=== PATIENT | female | born 1935 | race Caucasian/White ===

== ENCOUNTER → 2024-01-16 13:54 | Outpatient (REF) | payer OTHER, SELFPAY | LOC: RAD 13:54 | PROVIDERS: ATTENDING PHYSICIAN Family Medicine | DX: R05.3 Chronic cough (principal) | CPT/HCPCS: 70220; 71046 ==

== ENCOUNTER 2024-02-27 12:23 | Emergency (ER) | payer OTHER, SELFPAY ==
[2024-02-27 12:24] VITALS: BP 157/59
[2024-02-27 12:54] VITALS: BP 125/54
--- NOTE | 2024-02-27 13:39 | ED.GENMED ---
History of Present Illness
General
Chief Complaint: Headache
Source: patient
Exam Limitations: none
Time Seen by Provider: 02/27/24 12:53
Nursing documentation reviewed up to this point in time: agreed with
Travel History
Have you had any contact with someone who has COVID-19?: No
Do you have any symptoms of coronavirus? Fever > 100 degrees, chills, cough, shortness of breath, sore throat, loss of taste or smell, muscle aches, or headache?: No
History of Present Illness
History of Present Illness:
88-year-old female with history of HLD, IBS, impaired vision, cardiac cath with stent 2011, colon resection 2014 presents stating for past 3 days, all day long she gets sharp, shooting electric like pain originating posterior scalp behind the mid
ear (points to just above and medial to the mastoid process). The episodes last from a few seconds to up to a minute. It does not wake her from sleep.
No recent trauma. No goldberg in vision. Denies ear ache or neck pain but left side of neck is starting to get 'sore.'
She has been extremely stressed in past 2 weeks due to family issues
Past History
Past History
ED Past Surgical History: Bowel resection, Cardiac, Gynecological and Other (hernia repair)
Social History
Tobacco: Non-smoker
Alcohol: None
Personal:
Living: with family
Review of Systems
Review of Systems
Allergies reviewed?: Yes
All Other Systems: ROS reviewed and negative except as documented in HPI and ROS
Constitutional: Denies fever
EENT: Denies sore throat
Respiratory: Denies cough or trouble breathing
Cardiac: Denies chest pain
ABD/GI: Denies abdominal pain or nausea
Musculoskeletal: Reports other (scalp pain behind left ear)
Skin: Reports no symptoms
Neurological: Denies dizzy, headache, weakness or numbness
Phy Exam
Physical Exam
Physical Exam:
GENERAL: No acute distress. A&Ox3.
CONSTITUTIONAL: Afebrile.
EYES: PERRL, conjunctivae normal
Neck: Supple, full ROM
ENMT: moist mucus membranes, Pharynx nl, TMs normal
RESPIRATORY: Regular respirations, nonlabored, lungs clear.
CARDIOVASCULAR: Regular rate and rhythm, no murmurs, no rubs.
GI: Soft, nontender, normal BS
MUSCULOSKELETAL: Neck is nontender to palpation. Full range of motion. Moves with ease. Well perfused.
SKIN: Warm, dry, pink
PSYCH: Normal mood and affect. Well kept, interactive and appropriate
NEUROLOGIC: Awake, alert and oriented. No focal neurological deficits. [id number] intact, ambulates well with steady gait.
Course
Orders/Labs/Results
Orders:
Orders
02/27/24 14:45
Dexamethasone [Decadron] 10 mg PO NOW STA
Vital Signs
Initial and Last Documented VS:
Initial Vital Signs
Temp Pulse Resp BP Pulse Ox
97.8 F 79 16 157/59 96
02/27/24 12:24 02/27/24 12:24 02/27/24 12:24 02/27/24 12:24 02/27/24 12:24
Last Documented Vital Signs
Temp Pulse Resp BP Pulse Ox
97.8 F 67 18 125/54 95
02/27/24 12:24 02/27/24 12:54 02/27/24 12:54 02/27/24 12:54 02/27/24 12:54
Procedures
Other
Indication for procedure:: Occipital neuralgia
Procedure completed by: I Day DOUGH MOLDER
Additional Procedure:
2:15 p.m.
After identifying trigger point left posterior scalp over, area cleansed with alcohol wipe, injected 5 ml of Bupivicaine.
After 35 minutes still with occasional not as frequent or severe episodes, another 5 ml Bupivicaine injected 1 cm above the initial injection site.
Pt tolerated procedure well.
Decadron 10 mg given
Prednisone 40 mg daily x 3 days rx sent to her pharmacy.
3:25 p.m.
Has not had any pain since second injection
MDM/Problems Addressed
Differential Diagnosis Includes:
occipital neuralgia, cervicogenic headache, musculoskeletal referred pain
MDM/Problems Addressed:
88-year-old female with history of HLD, IBS, impaired vision, cardiac cath with stent 2011, colon resection 2014 presents stating for past 3 days, all day long she gets sharp, shooting electric like pain originating posterior scalp behind the mid
ear (points to just above and medial to the mastoid process). The episodes last from a few seconds to up to a minute. It does not wake her from sleep.
No recent trauma. No goldberg in vision. Denies ear ache or neck pain but left side of neck is starting to get 'sore.'
She has been extremely stressed in past 2 weeks due to family issues
Hx and exam consistent with left side occipital neuralgia vs referred cervical muscular pain due to stressGON
Tender over Greater occipital nerve + Tinel's sign to this area.
No cervical motion restriction. Mild tenderness left cervical muscles.
Rest of neuro exam is normal.
No trauma, no neuro deficits, clearly scalp pain, no imaging indicated
3:20 PM
See procedure note.
After second injection, at base of ELSY, no further pain.
Pt ambulated out with normal gait.
Plan: Short burst of steroids, follow-up with PCP if not improved in 5 to 7 days. Stress reduction discussed
*Critical Care Note
Total Time (30-74mins, 75-104mins- exclusive of procedures): Not Applicable
ED Attending Note
-
Portions of this chart may have been created with voice recognition software.� Occasional wrong word or��sound alike� substitutions may have occurred due to the inherent limitations of voice recognition software.
Discharge Plan
Departure
Patient Disposition: Home (Routine Discharge)
Date of Disposition: 02/27/24
Time of Disposition: 15:20
Patient with high blood pressure during this ER visit?: No
Condition: Good
Discharge Problem:
Occipital neuralgia of left side, Stress
Instructions: Stress, Headache, Adult ED
Prescriptions:
New
prednisone 20 mg tablet
40 mg PO DAILY Qty: 6 0RF
No Action
cholecalciferol (vitamin D3) [Vitamin D3] 1,000 UNIT tablet
1 tablets PO DAILY
ascorbic acid (vitamin C) [Vitamin C] 1,000 MG tablet
1,000 mg PO DAILY
famotidine 40 MG tablet
40 mg PO MOWEFR
cyanocobalamin (vitamin B-12) 1,000 MCG tablet
1,000 mcg DAILY
aspirin [Adult Aspirin Regimen] 81 MG tablet,delayed release (DR/EC)
81 mg PO DAILY
calcium carbonate 500 MG tablet
1,000 mg PO DAILY
metoprolol succinate [Toprol XL] 25 MG tablet extended release 24 hr
25 mg PO DAILY
biotin 5,000 MCG tablet,disintegrating
5,000 mcg PO DAILY
Fiberwell 5 G
10 grams HS
Prevagen
1 tab PO DAILY
clopidogrel 75 MG tablet
75 mg PO DAILY Qty: 90 3RF
rosuvastatin 10 MG tablet
10 mg PO QPM Qty: 90 3RF
Rx Instructions:
Please note dose increase
losartan 25 MG tablet
25 mg PO DAILY Qty: 90 3RF
Referrals:
Suhas Brandt MD [Family Provider] - Follow up in 5-7 days
Activity Restrictions/Additional Instructions:
As we discussed, I sent a prescription to your pharmacy for Prednisone 40 mg daily for 3 days. Start it tomorrow as you were given a dose here today
See your doctor in 5-7 days if not much improved by then.
You may continue to take Tylenol and/or Ibuprofen if needed for neck pain/headache.
Heating pad may help the muscle tension in your upper back and neck.
Interventions
Interventions:
*Risk Screen - Suicide Last Done: 02/27/24 12:24
*General Assessment Last Done: 02/27/24 12:24
*Neglect/Abuse Screening Last Done: 02/27/24 12:24
ED- Fall Risk Assessment Last Done: 02/27/24 15:43
*Nursing Disposition Last Done: 02/27/24 15:43
ED- Neurological Assessment Last Done: 02/27/24 12:52
Discharge Date and Time
Discharge Date/Time: 02/27/24 15:43
Print Language: [id number]
[2024-02-27] MEDS: DECADRON 10 MG PO (15:03)
== END 2024-02-27 15:43 | disposition home or self-care (01) ==
LOC: EMR 12:23
PROVIDERS: EMERGENCY PHYSICIAN Emergency Medicine; FAMILY PHYSICIAN Family Medicine
DX: M54.81 Occipital neuralgia (principal); M54.2 Cervicalgia; Z73.3 Stress, not elsewhere classified; E78.5 Hyperlipidemia, unspecified; K58.9 Irritable bowel syndrome, unspecified; G43.909 Migraine, unspecified, not intractable, without status migrainosus; M19.90 Unspecified osteoarthritis, unspecified site; M81.0 Age-related osteoporosis without current pathological fracture; Z95.5 Presence of coronary angioplasty implant and graft; Z79.82 Long term (current) use of aspirin; Z98.0 Intestinal bypass and anastomosis status; Z88.8 Allergy status to other drugs, medicaments and biological substances
CPT/HCPCS: 99284; 20552

== ENCOUNTER → 2024-06-15 11:26 | Outpatient (REF) | payer OTHER, SELFPAY ==
[2024-06-15 14:31] LABS: ALT (SGPT) 49 U/L (0-35); AST (SGOT) 38 U/L (14-36); Albumin 4.5 g/dl (3.5-5.0); Alkaline Phosphatase 74 U/L (38-126); Blood Urea Nitrogen 12 mg/dl (7-17); Carbon Dioxide 31 mmol/L (22-30); Chloride 99 mmol/L (98-107); Glucose 86 mg/dl (70-99); HDL Cholesterol 92 mg/dl; LDL Cholesterol, Calculated 64 mg/dl; Potassium 4.7 mmol/L (3.5-5.1); Sodium 142 mmol/L (135-145); Total Bilirubin 0.8 mg/dl (0.2-1.3); Total Cholesterol 170 mg/dl (50-199); Total Protein 6.9 g/dl (6.3-8.2); Triglyceride 71 mg/dl (10-149); Very Low Density Lipoprotein 14 mg/dl (0-30); eGFR > 60.00
== END ==
LOC: REG 11:26
PROVIDERS: ATTENDING PHYSICIAN Internal Medicine Interventional Cardiology; FAMILY PHYSICIAN Family Medicine
DX: I10 Essential (primary) hypertension (principal); E78.2 Mixed hyperlipidemia
CPT/HCPCS: 36415; 80053; 80061

== ENCOUNTER → 2024-08-12 14:25 | Outpatient (REF) | payer OTHER, SELFPAY ==
[2024-08-12 16:31] LABS: ALT (SGPT) 40 U/L (0-35); AST (SGOT) 40 U/L (14-36); Albumin 4.3 g/dl (3.5-5.0); Alkaline Phosphatase 77 U/L (38-126); Direct Bilirubin 0.1 mg/dl (0.0-0.4); GGTP 27 U/L (12-43); Iron 89 ug/dl (37-170); Magnesium 2.1 mg/dl (1.6-2.3); Total Bilirubin 0.4 mg/dl (0.2-1.3); Total Protein 6.5 g/dl (6.3-8.2)
[2024-08-12 17:36] LABS: Vitamin B12 > 1000 pg/ml (239-931)
== END ==
LOC: REG 14:25
PROVIDERS: ATTENDING PHYSICIAN Family Medicine
DX: M81.0 Age-related osteoporosis without current pathological fracture (principal); R74.8 Abnormal levels of other serum enzymes; M54.50 Low back pain, unspecified; R20.0 Anesthesia of skin; R20.2 Paresthesia of skin; M79.672 Pain in left foot
CPT/HCPCS: 36415; 72110; 80076; 82607; 82746; 82977; 83540; 83735

== ENCOUNTER → 2024-08-27 09:15 | Outpatient (REF) | payer OTHER, SELFPAY | LOC: HWRAD 09:15 | PROVIDERS: ATTENDING PHYSICIAN Family Medicine | DX: R74.8 Abnormal levels of other serum enzymes (principal) | CPT/HCPCS: 76700 ==

== ENCOUNTER → 2024-09-13 10:04 | Outpatient (REF) | payer OTHER, SELFPAY | LOC: HWRAD 10:04 | PROVIDERS: ATTENDING PHYSICIAN Family Medicine | DX: M81.0 Age-related osteoporosis without current pathological fracture (principal) | CPT/HCPCS: 77080 ==

== ENCOUNTER → 2024-11-09 12:44 | Outpatient (REF) | payer OTHER, SELFPAY | LOC: HWRAD 12:44 | PROVIDERS: ATTENDING PHYSICIAN Surgery Vascular Surgery; FAMILY PHYSICIAN Family Medicine | DX: I71.43 Infrarenal abdominal aortic aneurysm, without rupture (principal) | CPT/HCPCS: 76770 ==

== ENCOUNTER → 2024-12-22 14:55 | Outpatient (REF) | payer OTHER, SELFPAY | LOC: RAD 14:55 | PROVIDERS: ATTENDING PHYSICIAN Family Medicine | DX: J06.9 Acute upper respiratory infection, unspecified (principal) | CPT/HCPCS: 71046 ==